=== PATIENT | female | born 1975 | race Caucasian/White ===

== ENCOUNTER 2017-11-22 18:48 | Emergency (ER) | payer OTHER ==
[~2017-11-22] VITALS: Ht 160 cm; Wt 47.6 kg
--- NOTE | ~2017-11-22 | EKG ---
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 11/23/17 0809 1933 193 Favian Bravo MD, FAC /EPI
[2017-11-22] MEDS ORDERED: NEURONTIN 300300 M1 PO (19:00)
[2017-11-22] MEDS ORDERED: LIORESAL 10 MG10 MG PO (19:01)
[2017-11-22 19:33] LABS: ABSOLUTE NEUTROPHILS 9.3 thou/uL (1.4-8.2); EOSINOPHILS 1.6 % (0.0-3.0); HEMATOCRIT 35.4 % (37.0-47.0); HEMOGLOBIN 12.2 gm/dL (12.0-15.0); LYMPHOCYTES 18.5 % (24.0-44.0); MCH 30.3 pg (26.0-34.0); MCHC 34.3 g/dL (28.0-37.0); MCV 88.3 fL (80.0-100.0); PLATELET COUNT 222 thou/uL (150-400); POLYS 70.9 % (36.0-66.0); RBC 4.01 mil/uL (4.20-5.00); RDW 14.2 % (10.5-14.5); WBC 13.1 thou/uL (4.0-11.0)
[2017-11-22 19:43] LABS: ANION GAP 9 mmol/L (7-16); BUN 20 mg/dL (7-18); CALCIUM 8.7 mg/dL (8.5-10.1); CHLORIDE 105 mmol/L (98-107); CO2 25 mmol/L (21-32); CREATININE 0.8 mg/dL (0.6-1.0); GLUCOSE 95 mg/dL (74-106); POTASSIUM 3.9 mmol/L (3.5-5.1); SODIUM 139 mmol/L (136-145)
[2017-11-22 19:53] LABS: SGOT 17 U/L (15-37); SGPT 25 U/L (30-65); TOTAL BILIRUBIN 0.3 mg/dL (<0.1-1.0); TOTAL PROTEIN 7.2 g/dL (6.4-8.2); TROPONIN-I <0.06 ng/mL (<0.06)
[2017-11-22] MEDS ORDERED: NORCO 10-325 T1 EACH PO (21:43)
[2017-11-22] MEDS ORDERED: MIRALAX17 GM PO (21:43)
[2017-11-22 22:11] VITALS: BP 99/56
[2017-11-26] MEDS ORDERED: ANUSOL-HC25 MG RECTAL (13:20)
[2017-11-26] MEDS ORDERED: HYDROCORTISONE30 G9 RECTAL (13:20)
[2017-11-26] MEDS ORDERED: NORCO 5-325 TA1 EACH PO (13:23)
== END 2017-11-22 22:11 | disposition home or self-care (01) ==
LOC: ER 18:48
PROVIDERS: Physician Assistant
DX: S09.90XA Unspecified injury of head, initial encounter (principal); S20.412A Abrasion of left back wall of thorax, initial encounter; M25.512 Pain in left shoulder; R07.9 Chest pain, unspecified; M54.5 Low back pain; F17.210 Nicotine dependence, cigarettes, uncomplicated; M79.7 Fibromyalgia; W11.XXXA Fall on and from ladder, initial encounter; Y92.89 Other specified places as the place of occurrence of the external cause; Y93.89 Activity, other specified; Y99.8 Other external cause status

== ENCOUNTER 2018-01-25 08:59 | Emergency (ER) | payer OTHER ==
[~2018-01-25] VITALS: Ht 157.5 cm; Wt 52.2 kg
[~2018-01-25 08:59] MED LIST: ANUSOL-HC25 MG RECTAL; HYDROCORTISONE30 G9 RECTAL; LIORESAL 10 MG10 MG PO; MIRALAX17 GM PO; NEURONTIN 300300 M1 PO; NORCO 10-325 T1 EACH PO; NORCO 5-325 TA1 EACH PO
[2018-01-25] MEDS ORDERED: LIORESAL 10 MG10 MG PO (09:11)
[2018-01-25] MEDS ORDERED: LIDODERM1 EACH TOP (09:36)
[2018-01-25 09:52] VITALS: BP 102/58
== END 2018-01-25 09:56 | disposition home or self-care (01) ==
LOC: ER 08:59
DX: M25.511 Pain in right shoulder (principal); F17.210 Nicotine dependence, cigarettes, uncomplicated; M79.7 Fibromyalgia

== ENCOUNTER 2018-05-22 16:22 | Emergency (ER) | payer OTHER ==
[~2018-05-22] VITALS: Ht 162.6 cm; Wt 52.2 kg
[2018-05-22 16:22] VITALS: BP 121/63
[~2018-05-22 16:22] MED LIST changes: +LIDODERM1 EACH TOP
[2018-05-22] MEDS ORDERED: PENICILLIN V P500 MG PO (16:37)
[2018-05-22] MEDS ORDERED: NORCO 10-325 T1 EACH PO (16:37)
== END 2018-05-22 16:46 | disposition home or self-care (01) ==
LOC: ER 16:22
DX: K08.89 Other specified disorders of teeth and supporting structures (principal); M79.7 Fibromyalgia; F17.210 Nicotine dependence, cigarettes, uncomplicated

== ENCOUNTER 2018-07-17 11:25 | Emergency (ER) | payer OTHER ==
[~2018-07-17] VITALS: Ht 162.6 cm; Wt 52.2 kg
[~2018-07-17 11:25] MED LIST changes: +PENICILLIN V P500 MG PO
[2018-07-17 14:25] LABS: URINE BILIRUBIN NEGATIVE (Negative); URINE BLOOD NEGATIVE (Negative); URINE CLARITY CLEAR; URINE COLOR YELLOW; URINE GLUCOSE-RANDOM* NEGATIVE (Negative); URINE KETONES NEGATIVE (Negative); URINE LEUKOCYTES-REFLEX NEGATIVE (Negative); URINE NITRITE-REFLEX NEGATIVE (Negative); URINE PROTEIN (DIPSTICK) NEGATIVE (Negative); URINE SPECIFIC GRAVITY <= 1.005 (1.005-1.035); URINE UROBILINOGEN 0.2 E.U./dl (0.2-1.0)
[2018-07-17 14:27] LABS: ABSOLUTE NEUTROPHILS 5.6 thou/uL (1.4-8.2); BASOPHILS 1.2 % (0.0-2.0); EOSINOPHILS 1.2 % (0.0-3.0); HEMATOCRIT 39.9 % (37.0-47.0); HEMOGLOBIN 13.2 gm/dL (12.0-15.0); LYMPHOCYTES 25.7 % (24.0-44.0); MCH 29.3 pg (26.0-34.0); MCHC 33.1 g/dL (28.0-37.0); MCV 88.6 fL (80.0-100.0); MONOCYTES 6.7 % (1.0-8.0); PLATELET COUNT 267 thou/uL (150-400); POLYS 65.2 % (36.0-66.0); WBC 8.6 thou/uL (4.0-11.0)
[2018-07-17 14:40] LABS: CALCIUM 9.3 mg/dL (8.5-10.1); CREATININE 0.6 mg/dL (0.6-1.0)
[2018-07-17 14:45] LABS: TOTAL BILIRUBIN 0.3 mg/dL (<0.1-1.0); TOTAL PROTEIN 7.6 g/dL (6.4-8.2)
[2018-07-17] MEDS ORDERED: NORCO 5-325 TA1 EACH PO (14:50)
[2018-07-17] MEDS ORDERED: SENNA8.6 MG PO (14:50)
[2018-07-17] MEDS ORDERED: PROCTOFOAM15 GM TOP (14:50)
[2018-07-17 15:17] VITALS: BP 118/71
== END 2018-07-17 15:18 | disposition home or self-care (01) ==
LOC: ER 11:25
PROVIDERS: Physician Assistant
DX: K64.4 Residual hemorrhoidal skin tags (principal); M79.7 Fibromyalgia

== ENCOUNTER 2018-07-31 17:56 | Emergency (ER) | payer OTHER ==
[~2018-07-31] VITALS: Ht 157.5 cm; Wt 56.7 kg
[~2018-07-31 17:56] MED LIST changes: +PROCTOFOAM15 GM TOP; +SENNA8.6 MG PO
[2018-07-31] MEDS ORDERED: NAPROSYN500 MG PO (19:05)
[2018-07-31] MEDS ORDERED: AMOXICILLIN 50500 MG PO (19:05)
[2018-07-31] MEDS ORDERED: TRAMADOL 50 MG50 MG PO (19:05)
[2018-07-31 19:17] VITALS: BP 109/74
== END 2018-07-31 19:17 | disposition home or self-care (01) ==
LOC: ER 17:56
DX: K02.9 Dental caries, unspecified (principal); M79.7 Fibromyalgia; F17.210 Nicotine dependence, cigarettes, uncomplicated

== ENCOUNTER 2018-08-24 17:23 | Emergency (ER) | payer OTHER ==
[~2018-08-24] VITALS: Ht 162.6 cm; Wt 56.7 kg
[~2018-08-24 17:23] MED LIST changes: +AMOXICILLIN 50500 MG PO; +NAPROSYN500 MG PO; +TRAMADOL 50 MG50 MG PO
[2018-08-24] MEDS ORDERED: NEURONTIN 300300 M1 PO (17:34)
[2018-08-24] MEDS ORDERED: CYCLOBENZAPRINE5 MG PO (17:54)
[2018-08-24 18:37] VITALS: BP 122/71
== END 2018-08-24 18:04 | disposition home or self-care (01) ==
LOC: ER 17:23
DX: M25.511 Pain in right shoulder (principal); F17.210 Nicotine dependence, cigarettes, uncomplicated; Z76.0 Encounter for issue of repeat prescription; M79.7 Fibromyalgia

== ENCOUNTER 2018-09-12 08:32 | Emergency (ER) | payer OTHER ==
[~2018-09-12] VITALS: Ht 162.6 cm; Wt 54.4 kg
[~2018-09-12 08:32] MED LIST changes: +CYCLOBENZAPRINE5 MG PO
[2018-09-12] MEDS ORDERED: DOXYCYCLINE 10100 MG PO (08:35)
[2018-09-12] MEDS ORDERED: LIORESAL 10 MG10 MG PO (08:41)
[2018-09-12] MEDS ORDERED: CELEXA10 MG PO (08:41)
[2018-09-12 10:17] LABS: HEMOGLOBIN 13.1 gm/dL (12.0-15.0); MCH 29.7 pg (26.0-34.0); MCHC 33.6 g/dL (28.0-37.0); MCV 88.5 fL (80.0-100.0); RBC 4.4 mil/uL (4.20-5.00); RDW 14.7 % (10.5-14.5); WBC 4.3 thou/uL (4.0-11.0)
[2018-09-12 10:27] LABS: CALCIUM 9.1 mg/dL (8.5-10.1); CREATININE 0.7 mg/dL (0.6-1.0); POTASSIUM 4.2 mmol/L (3.5-5.1)
[2018-09-12 10:30] LABS: APTT 28.1 Seconds (24.5-32.8); PROTIME 10.7 Seconds (9.3-11.4)
[2018-09-12 10:33] LABS: ALBUMIN 3.7 g/dL (3.4-5.0); TOTAL BILIRUBIN 0.2 mg/dL (<0.1-1.0); TOTAL PROTEIN 7.3 g/dL (6.4-8.2)
[2018-09-12 10:48] VITALS: BP 126/73
[2018-09-13 05:08] LABS: LYME ANTIBODY SCREEN* <0.91 ISR (0.00-0.90)
== END 2018-09-12 10:15 | disposition home or self-care (01) ==
LOC: ER 08:32
PROVIDERS: Emergency Medicine
DX: S30.860A Insect bite (nonvenomous) of lower back and pelvis, initial encounter (principal); M79.7 Fibromyalgia; F17.210 Nicotine dependence, cigarettes, uncomplicated; W57.XXXA Bitten or stung by nonvenomous insect and other nonvenomous arthropods, initial encounter; Y93.89 Activity, other specified; Y92.89 Other specified places as the place of occurrence of the external cause; Y99.8 Other external cause status

== ENCOUNTER 2018-10-25 20:25 | Emergency (ER) | payer OTHER ==
[~2018-10-25] VITALS: Ht 157.5 cm; Wt 56.7 kg
[~2018-10-25 20:25] MED LIST changes: +CELEXA10 MG PO; +DOXYCYCLINE 10100 MG PO
[2018-10-25 20:31] VITALS: BP 121/100
[2018-10-25] MEDS ORDERED: NAPROSYN500 MG PO (21:00)
[2018-10-25] MEDS ORDERED: MEDROLDOSEPACK PO (21:00)
[2018-10-25] MEDS ORDERED: ULTRAM 50MG TAB50 MG PO (21:00)
== END 2018-10-25 21:21 | disposition home or self-care (01) ==
LOC: ER 20:25
DX: S46.911A Strain of unspecified muscle, fascia and tendon at shoulder and upper arm level, right arm, initial encounter (principal); M79.7 Fibromyalgia; F17.210 Nicotine dependence, cigarettes, uncomplicated; X58.XXXA Exposure to other specified factors, initial encounter; Y93.89 Activity, other specified; Y92.89 Other specified places as the place of occurrence of the external cause; Y99.8 Other external cause status

== ENCOUNTER 2018-12-19 11:46 | Emergency (ER) | payer OTHER ==
[~2018-12-19] VITALS: Ht 162.6 cm; Wt 54.4 kg
[~2018-12-19 11:46] MED LIST changes: +MEDROLDOSEPACK PO; +ULTRAM 50MG TAB50 MG PO
[2018-12-19 11:47] VITALS: BP 119/70
[2018-12-19 12:03] LABS: URINE BILIRUBIN NEGATIVE (Negative); URINE BLOOD NEGATIVE (Negative); URINE CLARITY CLEAR; URINE COLOR YELLOW; URINE GLUCOSE-RANDOM* NEGATIVE (Negative); URINE KETONES NEGATIVE (Negative); URINE NITRITE-REFLEX NEGATIVE (Negative); URINE PROTEIN (DIPSTICK) NEGATIVE (Negative); URINE UROBILINOGEN 0.2 E.U./dl (0.2-1.0)
[2018-12-19 12:06] LABS: URINE LEUKOCYTES-REFLEX 1+ (Negative)
[2018-12-19 12:13] LABS: SQUAMOUS >10 Many /LPF (0-3)
[2018-12-19 12:14] LABS: BACTERIA-REFLEX 1-9 Few /HPF (None Seen); CASTS None Seen /LPF (None Seen); CRYSTALS None Seen /LPF (None Seen); URINE RBC 0-2 Rare /HPF (0-2); URINE WBC-REFLEX 6-15 Few /HPF (0-5)
[2018-12-19] MEDS ORDERED: PROCTOFOAM-HC F10 G1 RECTAL (12:38)
[2018-12-19] MEDS ORDERED: LIDOCAINE 2%2 %/5 GM RECTAL (12:38)
[2018-12-19] MEDS ORDERED: SENNA8.6 MG PO (12:38)
[2018-12-19] MEDS ORDERED: NORCO 5-325 TA1 EAC1 PO (12:38)
== END 2018-12-19 12:51 | disposition home or self-care (01) ==
LOC: ER 11:46
PROVIDERS: Physician Assistant
DX: K64.4 Residual hemorrhoidal skin tags (principal); M79.7 Fibromyalgia; F17.210 Nicotine dependence, cigarettes, uncomplicated

== ENCOUNTER 2019-01-31 09:50 | Emergency (ER) | payer OTHER ==
[~2019-01-31] VITALS: Ht 157.5 cm; Wt 54.4 kg
[~2019-01-31 09:50] MED LIST changes: +LIDOCAINE 2%2 %/5 GM RECTAL; +NORCO 5-325 TA1 EAC1 PO; +PROCTOFOAM-HC F10 G1 RECTAL
[2019-01-31] MEDS ORDERED: LEXAPRO20 MG PO (10:00)
[2019-01-31 10:23] LABS: ABSOLUTE NEUTROPHILS 7.3 thou/uL (1.4-8.2); EOSINOPHILS 1.6 % (0.0-3.0); HEMATOCRIT 40.7 % (37.0-47.0); HEMOGLOBIN 13.4 gm/dL (12.0-15.0); LYMPHOCYTES 19.3 % (24.0-44.0); MCH 29.8 pg (26.0-34.0); MCV 90.4 fL (80.0-100.0); MONOCYTES 7.6 % (1.0-8.0); PLATELET COUNT 213 thou/uL (150-400); POLYS 70.5 % (36.0-66.0); WBC 10.3 thou/uL (4.0-11.0)
[2019-01-31 10:26] LABS: ANION GAP 11 mmol/L (7-16); BUN 12 mg/dL (7-18); CALCIUM 9.2 mg/dL (8.5-10.1); CHLORIDE 105 mmol/L (98-107); CO2 25 mmol/L (21-32); CREATININE 0.7 mg/dL (0.6-1.0); GLUCOSE 96 mg/dL (74-106); POTASSIUM 3.7 mmol/L (3.5-5.1); SODIUM 141 mmol/L (136-145)
[2019-01-31 10:35] LABS: TROPONIN-I <0.06 ng/mL (<0.06)
[2019-01-31] MEDS ORDERED: LIDOCAINE PAIN1 EACH TOP (11:40)
[2019-01-31] MEDS ORDERED: SENNA PLUS TAB1 EACH PO (11:40)
[2019-01-31] MEDS ORDERED: NORCO 5-325 TA1 EAC1 PO (11:40)
[2019-01-31 13:00] VITALS: BP 101/54
--- NOTE | 2019-02-01 09:11 | EKG ---
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
== END 2019-01-31 13:01 | disposition home or self-care (01) ==
LOC: ER 09:50
PROVIDERS: Emergency Medicine
DX: R07.89 Other chest pain (principal); M79.7 Fibromyalgia; F17.210 Nicotine dependence, cigarettes, uncomplicated

== ENCOUNTER 2019-03-30 12:47 | Emergency (ER) | payer OTHER ==
[~2019-03-30] VITALS: Ht 157.5 cm; Wt 61.2 kg
[~2019-03-30 12:47] MED LIST changes: +LEXAPRO20 MG PO; +LIDOCAINE PAIN1 EACH TOP; +SENNA PLUS TAB1 EACH PO
[2019-03-30 13:49] LABS: ABSOLUTE NEUTROPHILS 7.7 thou/uL (1.4-8.2); ANION GAP 11 mmol/L (7-16); BASOPHILS 0.9 % (0.0-2.0); BUN 18 mg/dL (7-18); CALCIUM 8.8 mg/dL (8.5-10.1); CHLORIDE 104 mmol/L (98-107); CO2 24 mmol/L (21-32); CREATININE 0.6 mg/dL (0.6-1.0); EOSINOPHILS 0.9 % (0.0-3.0); GLUCOSE 101 mg/dL (74-106); HEMATOCRIT 36.2 % (37.0-47.0); LYMPHOCYTES 17.3 % (24.0-44.0); MCH 29.4 pg (26.0-34.0); MONOCYTES 7.9 % (1.0-8.0); PLATELET COUNT 225 thou/uL (150-400); POTASSIUM 3.7 mmol/L (3.5-5.1); RBC 4.07 mil/uL (4.20-5.00); RDW 13.8 % (10.5-14.5); SODIUM 139 mmol/L (136-145); WBC 10.6 thou/uL (4.0-11.0)
[2019-03-30 13:59] LABS: ALBUMIN 3.8 g/dL (3.4-5.0); LIPASE 71 U/L (73-393); SGOT 12 U/L (15-37); SGPT 16 U/L (30-65); TOTAL BILIRUBIN 0.3 mg/dL (<0.1-1.0); TOTAL PROTEIN 7.4 g/dL (6.4-8.2); TROPONIN-I <0.06 ng/mL (<0.06)
[2019-03-30 14:19] LABS: URINE BILIRUBIN NEGATIVE (Negative); URINE BLOOD NEGATIVE (Negative); URINE CLARITY CLEAR; URINE COLOR YELLOW; URINE GLUCOSE-RANDOM* NEGATIVE (Negative); URINE KETONES NEGATIVE (Negative); URINE LEUKOCYTES-REFLEX NEGATIVE (Negative); URINE NITRITE-REFLEX NEGATIVE (Negative); URINE PROTEIN (DIPSTICK) NEGATIVE (Negative); URINE SPECIFIC GRAVITY >= 1.030 (1.005-1.035); URINE UROBILINOGEN 0.2 E.U./dl (0.2-1.0)
[2019-03-30] MEDS ORDERED: TYLENOL WITH CO1 TA1 PO (15:03)
[2019-03-30] MEDS ORDERED: PROTONIX40 MG PO (15:03)
[2019-03-30 15:39] VITALS: BP 98/64
--- NOTE | 2019-03-31 09:40 | EKG ---
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[facility] : 1975 Requested By: Corona Kang Order Number: [id number] MD: Favian Bravo Measurements Intervals [place] Rate: 58 P: 37 ND: 130 QRS: 83 QRSD: 86 T: 60 QT: 432 QTc: 425 Interpretive Statements Sinus rhythm No significant abnormality Compared to ECG 01/31/2019 09:47:06 Myocardial infarct finding no longer present Electronically Signed On 03-31-2019 9:40:28 DIRECTOR INVESTMENT BANKING by Favian Bravo [email or web address] <ELECTRONICALLY SIGNED> By: Favian Bravo MD, [facility] 03/31/19 0940 1335 1335 Favian Bravo MD, FACC /EPI
== END 2019-03-30 15:40 | disposition home or self-care (01) ==
LOC: ER 12:47
PROVIDERS: Emergency Medicine
DX: K64.4 Residual hemorrhoidal skin tags (principal); R19.7 Diarrhea, unspecified; M79.7 Fibromyalgia; F17.210 Nicotine dependence, cigarettes, uncomplicated

== ENCOUNTER 2019-04-24 14:09 | Emergency (ER) | payer OTHER ==
[~2019-04-24] VITALS: Ht 162.6 cm; Wt 54.4 kg
[~2019-04-24 14:09] MED LIST changes: +PROTONIX40 MG PO; +TYLENOL WITH CO1 TA1 PO
[2019-04-24 14:31] LABS: URINE BILIRUBIN NEGATIVE (Negative); URINE BLOOD NEGATIVE (Negative); URINE CLARITY SL CLOUDY; URINE COLOR YELLOW; URINE GLUCOSE-RANDOM* NEGATIVE (Negative); URINE KETONES NEGATIVE (Negative); URINE NITRITE-REFLEX NEGATIVE (Negative); URINE PROTEIN (DIPSTICK) NEGATIVE (Negative); URINE SPECIFIC GRAVITY 1.015 (1.005-1.035)
[2019-04-24 14:33] LABS: URINE LEUKOCYTES-REFLEX 1+ (Negative)
[2019-04-24 14:54] LABS: CASTS None Seen /LPF (None Seen); SQUAMOUS >10 Many /LPF (0-3); URINE WBC-REFLEX 6-15 Few /HPF (0-5)
[2019-04-24 14:55] LABS: BACTERIA-REFLEX 1-9 Few /HPF (None Seen); CRYSTALS None Seen /LPF (None Seen); URINE RBC 0-2 Rare /HPF (0-2)
[2019-04-24 15:14] LABS: ABSOLUTE NEUTROPHILS 4.3 thou/uL (1.4-8.2); BASOPHILS 1.4 % (0.0-2.0); EOSINOPHILS 1.6 % (0.0-3.0); HEMOGLOBIN 11.8 gm/dL (12.0-15.0); LYMPHOCYTES 29.3 % (24.0-44.0); MCH 29.2 pg (26.0-34.0); MCHC 32.8 g/dL (28.0-37.0); MCV 88.9 fL (80.0-100.0); PLATELET COUNT 230 thou/uL (150-400); POLYS 58.7 % (36.0-66.0); RBC 4.05 mil/uL (4.20-5.00); RDW 13.9 % (10.5-14.5); WBC 7.4 thou/uL (4.0-11.0)
--- NOTE | 2019-04-24 15:30 | EKG ---
[address] 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
[2019-04-24 15:31] LABS: ANION GAP 8 mmol/L (7-16); BUN 18 mg/dL (7-18); CALCIUM 8.7 mg/dL (8.5-10.1); CHLORIDE 105 mmol/L (98-107); CO2 27 mmol/L (21-32); CREATININE 0.8 mg/dL (0.6-1.0); GLUCOSE 90 mg/dL (74-106); POTASSIUM 3.9 mmol/L (3.5-5.1); SODIUM 140 mmol/L (136-145)
[2019-04-24 15:51] LABS: ALBUMIN 3.7 g/dL (3.4-5.0); LIPASE 85 U/L (73-393); SGOT 15 U/L (15-37); SGPT 19 U/L (30-65); TOTAL BILIRUBIN 0.2 mg/dL (<0.1-1.0); TOTAL PROTEIN 7.2 g/dL (6.4-8.2); TROPONIN-I <0.06 ng/mL (<0.06)
[2019-04-24] MEDS ORDERED: TRAMADOL 50 MG50 MG PO (17:11)
[2019-04-24] MEDS ORDERED: ZOFRAN ODT4 MG PO (17:11)
[2019-04-24] MEDS ORDERED: CARAFATE 1 GM TA1 G1 PO (17:11)
[2019-04-24 17:21] VITALS: BP 112/76
== END 2019-04-24 17:32 | disposition home or self-care (01) ==
LOC: ER 14:09
PROVIDERS: Nurse Practitioner Family
DX: N39.0 Urinary tract infection, site not specified (principal); R10.13 Epigastric pain; M79.7 Fibromyalgia; F17.210 Nicotine dependence, cigarettes, uncomplicated

== ENCOUNTER → 2019-04-25 | Emergency (ER) | payer OTHER ==
[~2019-04-25] VITALS: Ht 162.6 cm; Wt 54.4 kg
[~2019-04-25] MED LIST changes: +BACLOFEN 10MG T10 MG PO; +CARAFATE 1 GM TA1 G1 PO; +ZOFRAN ODT4 MG PO
[2019-04-25 18:49] VITALS: BP 114/58
== END ==
LOC: ER 18:48
DX: Z53.21 Procedure and treatment not carried out due to patient leaving prior to being seen by health care provider (principal)

== ENCOUNTER 2019-04-27 14:31 | Inpatient (IN) | payer OTHER ==
[~2019-04-27] VITALS: Wt 55.3 kg
[~2019-04-27 14:31] MED LIST changes: -BACLOFEN 10MG T10 MG PO
[2019-04-27 14:32] VITALS: BP 123/64
[2019-04-27 15:38] LABS: ABSOLUTE NEUTROPHILS 5.1 thou/uL (1.4-8.2); HEMATOCRIT 35.3 % (37.0-47.0); HEMOGLOBIN 11.4 gm/dL (12.0-15.0); LYMPHOCYTES 28.7 % (24.0-44.0); MCH 28.9 pg (26.0-34.0); MCHC 32.2 g/dL (28.0-37.0); MCV 89.8 fL (80.0-100.0); POLYS 60.3 % (36.0-66.0); RBC 3.93 mil/uL (4.20-5.00); RDW 13.7 % (10.5-14.5); WBC 8.5 thou/uL (4.0-11.0)
[2019-04-27 15:43] LABS: CALCIUM 8.9 mg/dL (8.5-10.1); CREATININE 0.6 mg/dL (0.6-1.0); POTASSIUM 3.8 mmol/L (3.5-5.1)
[2019-04-27 15:43] LABS: URINE BILIRUBIN NEGATIVE (Negative); URINE BLOOD NEGATIVE (Negative); URINE GLUCOSE-RANDOM* NEGATIVE (Negative); URINE KETONES NEGATIVE (Negative); URINE NITRITE-REFLEX NEGATIVE (Negative); URINE PROTEIN (DIPSTICK) NEGATIVE (Negative); URINE SPECIFIC GRAVITY <= 1.005 (1.005-1.035); URINE UROBILINOGEN 0.2 E.U./dl (0.2-1.0)
[2019-04-27 15:45] LABS: URINE CLARITY SL HAZY; URINE COLOR STRAW; URINE LEUKOCYTES-REFLEX 2+ (Negative)
[2019-04-27 15:49] LABS: ALBUMIN 3.7 g/dL (3.4-5.0); TOTAL BILIRUBIN 0.5 mg/dL (<0.1-1.0); TOTAL PROTEIN 7.2 g/dL (6.4-8.2)
[2019-04-27 16:00] LABS: SQUAMOUS 4-10 Moderate /LPF (0-3); URINE WBC-REFLEX 6-15 Few /HPF (0-5)
[2019-04-27 16:01] LABS: CASTS None Seen /LPF (None Seen); CRYSTALS None Seen /LPF (None Seen); URINE RBC None Seen /HPF (0-2)
[2019-04-27 16:25] LABS: PLATELET COUNT 216 thou/uL (150-400)
[2019-04-27 18:41] VITALS: BP 139/78
[2019-04-27 20:15] VITALS: BP 112/69
[2019-04-27 20:22] VITALS: BP 102/77
[2019-04-27] MEDS ORDERED: BACLOFEN 10MG T10 MG PO (23:32)
[2019-04-28 05:35] LABS: HEMATOCRIT 36.2 % (37.0-47.0); HEMOGLOBIN 11.7 gm/dL (12.0-15.0); MCH 29.3 pg (26.0-34.0); MCHC 32.4 g/dL (28.0-37.0); MCV 90.6 fL (80.0-100.0); RDW 14.1 % (10.5-14.5); WBC 9.4 thou/uL (4.0-11.0)
[2019-04-28 05:57] LABS: CALCIUM 8.6 mg/dL (8.5-10.1); CREATININE 0.6 mg/dL (0.6-1.0); POTASSIUM 3.8 mmol/L (3.5-5.1)
--- NOTE | 2019-04-28 06:46 | NUR ---
ADMIT PT ADMITTED TO ROOM 457 FROM ED WITH ABDOMINAL PAIN, ADMISSION QUESTIONAIRE, ASSESSMENT, MED REC COMPLETED. [facility]SULT TO [facility] CALLED . IVF'S INITIATED MORPHINE AND HYDROCODONE GIVEN FOR PAIN WITH EFFECT PT SLEEPS AFTER. CONTINUE TO MONITOR.
[2019-04-28 07:53] VITALS: BP 96/55
[2019-04-28 16:57] VITALS: BP 90/54
--- NOTE | 2019-04-28 19:42 | NUR ---
Assumed pt care at 7am.Pt in and out of bed with sba.Assessment completed.vss. Pt has urinary retention but able to voids when told she will be catherized. Dr Louise here,order noted.pt significant other here,updates given.Medicated pt with pain shot as needed for pain.Will continue to monitor.
[2019-04-28 19:46] VITALS: BP 89/58
[2019-04-28 20:20] VITALS: BP 94/55
--- NOTE | 2019-04-29 03:29 | NUR ---
PT CARE ASSUMED WITH PT IN BED,PT IS A/O X4.PT IS UP AD ISACC.PT C/O OF SHOULDER PAIN ,NATALIE ANDREWS PAGED AND TORADOL 30MG STAT GIVEN WITH NO RELIEF.EKG DONE BY NURSING TREE CARE FOREMAN AND RESULT OK.LIDOCAINE PATCH OREDRED FOR SHOULDER PAIN AND LABS ORDERED.MEDICATION REVIEWED BY NATALIE ANDREWS.PT IS ALSO ON MORPHINE FOR PAIN MGT.WILL CONTINUE TO MONITOR PER POC TILL EOS
[2019-04-29 05:33] LABS: ANION GAP 8 mmol/L (7-16); BUN 13 mg/dL (7-18); CALCIUM 8.5 mg/dL (8.5-10.1); CHLORIDE 106 mmol/L (98-107); CO2 25 mmol/L (21-32); CREATININE 0.7 mg/dL (0.6-1.0); GLUCOSE 89 mg/dL (74-106); MAGNESIUM 1.7 mg/dL (1.8-2.4); POTASSIUM 3.8 mmol/L (3.5-5.1); SODIUM 139 mmol/L (136-145); TROPONIN-I <0.06 ng/mL (<0.06)
[2019-04-29 08:00] VITALS: BP 127/65
--- NOTE | 2019-04-29 11:26 | EKG ---
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
--- NOTE | 2019-04-29 13:15 | NUR ---
Assumed pt care at 7am.Pt in bed sleeping but arousable.Assessment completed. vss.Pt c/o rt shoulder and abdominal pain.Pain shot given with partial relief. Dr Abbott here,order noted.Pt will be going for edg in am.Consent will be sign later this afternoon.Pt went for abdominal xray later this morning and returned later to room. Will continue to monitor.
[2019-04-29 15:00] VITALS: BP 115/57
[2019-04-29 19:50] VITALS: BP 119/65
--- NOTE | 2019-04-30 04:03 | NUR ---
Progress pt a/o x4, up ad polo. C/o pain to right hip that is somewhat relieved with hydrocodone. Pt confused yelling out help me at times but unable to verbalize what she needs. pulled iv out and new one started in right hand wrapped with kerlix. Griffin in place and draining clear estrella colored urine. pulling o2 off sats dropped dwon to 75%, reapplied o2 and sats up into mid 90's. incontinent of stool. possible discharge to snf when accepted.
--- NOTE | 2019-04-30 05:12 | NUR ---
PROGRESS PT A/O X 4, UP AD ISACC VOIDING QS IN BATHROOM. IVF'S CONTINUE. CONTINUES TO REPORT ABDOMINAL PAIN TAKING 4 MG MORPHINE IVP. TO HAVE EGD TODAY NPO SINCE MIDNIGHT CONTINUE POC.
[2019-04-30 07:56] VITALS: BP 109/56
[2019-04-30 12:30] VITALS: BP 109/65
--- NOTE | 2019-04-30 12:51 | NUR ---
Assumed pt care at 7am.Pt in bed very worried about when she will be going for egd today.Gi lab called for updates. At around 11am pt left for egd and returned at 1300 in stable condition. Will continue to monitor.
[2019-04-30 13:44] VITALS: BP 101/56
--- NOTE | 2019-04-30 14:55 | NUR ---
PT ADMITTED RLEATED TO ABDOMINAL PAIN. CM REVIEWED CHART AND SPOKE WITH CARE TEAM. CM MET WITH PT AT BEDSIDE THIS DAY. PT INDICATED SHE LIVES IN AN APARTMENT ALONE WITH 10 STEPS TO ENTER AND NO STEPS INSIDE. 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 PT INDICATED NO DME OR HH HX. PT INDICATED HE PCP ID DR. JOHANNY BERKOWITZ. PT INDIATED SHE PLANS TO RETURN HOME ONCE MEDICALLY STABLE. CM TO FOLLOW INDICATED WITH DC PLANNING.
[2019-04-30 19:03] VITALS: BP 98/57
[2019-05-01 07:10] VITALS: BP 90/63
--- NOTE | 2019-05-01 08:24 | NUR ---
PROGRESS PT A/O X4 UP AD ISACC LUNGS CLEAR TOLERATING CLEAR LIQUIDS TO ADVANCE TO FULL LIQUIDS AND TO REG TOLERATED. NPO AFTER MIDNIGHT FOR PIPPIDA SCAN. NO NARCOTICS AFTER 2200 LAST KENDRICK GIVEN AT 2150 WITH EFFECT PT SLEPT ALL NOC. UP TO VOID INDEPENDENTLY, IVF'S INFUSING ORDERED. PT EDUCATION PROVIDED REGARDING PIPIDA SCAN LEFT WITH PT ADVISED TO CALL IF SHE NEEDED FURTHER EXPLANATION REGARDING TEST.
[2019-05-01] MEDS ORDERED: TRAMADOL 50 MG50 MG PO (10:30)
[2019-05-01] MEDS ORDERED: CEFUROXIME250 MG PO (10:48)
[2019-05-01 12:02] VITALS: BP 90/63
--- NOTE | 2019-05-01 12:23 | NUR ---
PT RECEIVED PIPIDA SCAN THIS SHIFT. MET WITH GI & HOSPITALIST. PT DISCHARGED HOME WITH NO NEEDS. DISCHARGE EDUCATION AND MEDICATION EDUCATION PROVIDED TO PATIENT. PATIENT AWARE THAT NEW PRESCRIPTIONS SENT TO PHARMACY ELECTRONICALLY. NOTIFIED PATIENT OF FOLLOW UP IN 2-4 WEEKS WITH GI PHYSICIAN. PT VERBALIZES ACCURATE UNDERSTANDING OF DISCHARGE EDUCATION. PT ESCORTED VIA WHEELCHAIR BY UNIT STAFF.
--- NOTE | 2019-05-01 16:06 | PATH ---
[facility] [place] [address] PATHOLOGY RPT PROCEDURE Name: LUISA DSOS Room #: 457-P DIS IN M.R.#: [id number] Admission: 04/27/19 Date of : 71 Discharge: 05/01/19 Report #: [id number] Path Case #: [id number] [facility] Accession Number: [id number] . 01 Material submitted: . PART A: duodenum - BX OF DUODENUM PART B: stomach - BX OF ANTRUM . 01 Clinical history: . Pre-OP DX: Abdominal pain Post-OP DX: Gastritis, mild esophagitis . 02 Diagnosis: A. Small bowel mucosa, duodenum, endoscopic biopsy: - No diagnostic abnormalities present. . B. 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 - Negative for intestinal metaplasia or atrophy. - Negative for Helicobacter pylori (properly controlled immunohistochemical stain performed). (IUV:pit 05/01/2019) QTP 05/01/2019 1226 Local . 02 Comment: B. The current "antrum" biopsy tissue shows some mild active gastritis along with scattered foci showing predominantly eosinophilic infiltrate. The histologic pattern is concerning for allergic, collagen vascular diseases, fungal or parasitic infection, as well as idiopathic eosinophilic gastritis. Please correlate with clinical and endoscopic findings. (IUV:pit 05/01/2019) . 02 Electronically signed: . Natalia Hanley MD, Pathologist NPI- [id number] . 01 Gross description: . A. Received in formalin labeled "Luisa Doss, BX of duodenum to rule out celiac," are 2 segments of braun soft tissue measuring 0.7 x 0.2 x 0.2 cm in aggregate dimensions and ranging from 0.3 to 0.4 cm in maximum dimension. The specimen is submitted entirely in cassette A1. . B. Received in formalin labeled "Luisa Doss, BX of antrum to rule out H. pylori," are 2 segments of braun soft tissue measuring 0.8 x 0.2 x 0.2 cm in aggregate dimensions and ranging from 0.3 to 0.5 cm in maximum dimension. [address] [address] PATHOLOGY RPT PROCEDURE Name: LUISA DOSS Room #: 457-P DIS IN M.R.#: [id number] Admission: 04/27/19 Date of : 71 Discharge: 05/01/19 Report #: [id number] Path Case #: [id number] The specimen is submitted entirely in cassette B1. (TSD; 04/30/2019) TOB/TOB 04/30/2019 1700 Local . 02 Pathologist provided ICD-10: K29.50 . 02 CPT . 221575, 768456, [id number] Specimen Comment: A courtesy copy of this report has been sent to [phone] Specimen Comment: Report sent to / DR PALMA Performed at: [address], [place] [id number] MD Alverto Ortiz MD Phone: [phone] Performed at: [address] [id number] MD Natalia Hanely MD Phone: [phone]
== END 2019-05-01 12:31 | disposition home or self-care (01) | DRG 392 ==
LOC: ER 14:31 → EROBS 18:11 → 4W 20:09
PROVIDERS: Nurse Practitioner Acute Care; Physician Assistant; ADMIT Hospitalist
PROC: 0DB98ZX Excision of Duodenum, Via Natural or Artificial Opening Endoscopic, Diagnostic (ICD-10-PCS; principal; 2019-04-30)
PROC: 0DB68ZX Excision of Stomach, Via Natural or Artificial Opening Endoscopic, Diagnostic (ICD-10-PCS; principal; 2019-04-30)
DX: K29.70 Gastritis, unspecified, without bleeding (principal); N39.0 Urinary tract infection, site not specified; F17.210 Nicotine dependence, cigarettes, uncomplicated; G89.29 Other chronic pain; R33.9 Retention of urine, unspecified; F19.10 Other psychoactive substance abuse, uncomplicated; K20.9 Esophagitis, unspecified; F32.9 Major depressive disorder, single episode, unspecified; Z79.899 Other long term (current) drug therapy
CPT/HCPCS: 10040; 62110; 62900; 70005

== ENCOUNTER 2019-06-07 07:11 | Emergency (ER) | payer OTHER ==
[~2019-06-07] VITALS: Ht 162.6 cm; Wt 56.7 kg
[~2019-06-07 07:11] MED LIST changes: +BACLOFEN 10MG T10 MG PO; +CEFUROXIME250 MG PO
[2019-06-07] MEDS ORDERED: HYDROCORTISONE30 GM TOP (09:51)
[2019-06-07 10:12] VITALS: BP 120/70
== END 2019-06-07 10:12 | disposition home or self-care (01) ==
LOC: ER 07:11
DX: R21 Rash and other nonspecific skin eruption (principal); M79.7 Fibromyalgia; F17.210 Nicotine dependence, cigarettes, uncomplicated; Z90.49 Acquired absence of other specified parts of digestive tract; Z98.51 Tubal ligation status; Z88.6 Allergy status to analgesic agent

== ENCOUNTER 2019-10-05 19:37 | Emergency (ER) | payer OTHER ==
[~2019-10-05] VITALS: Ht 162.6 cm; Wt 58.5 kg
[~2019-10-05 19:37] MED LIST changes: +HYDROCORTISONE30 GM TOP
[2019-10-05 20:18] LABS: URINE BILIRUBIN NEGATIVE (Negative); URINE BLOOD 1+ (Negative); URINE CLARITY CLEAR; URINE COLOR YELLOW; URINE GLUCOSE-RANDOM* NEGATIVE (Negative); URINE KETONES NEGATIVE (Negative); URINE NITRITE-REFLEX NEGATIVE (Negative); URINE PROTEIN (DIPSTICK) NEGATIVE (Negative); URINE UROBILINOGEN 0.2 E.U./dl (0.2-1.0)
[2019-10-05 20:19] LABS: URINE LEUKOCYTES-REFLEX 1+ (Negative)
[2019-10-05 20:27] LABS: CASTS None Seen /LPF (None Seen); CRYSTALS None Seen /LPF (None Seen); SQUAMOUS >10 Many /LPF (0-3)
[2019-10-05 20:29] LABS: BACTERIA-REFLEX 1-9 Few /HPF (None Seen); URINE WBC-REFLEX 6-15 Few /HPF (0-5)
[2019-10-05 20:30] LABS: URINE RBC 3-10 Few /HPF (0-2)
[2019-10-05] MEDS ORDERED: LIDODERM1 EACH TOP (22:06)
[2019-10-05 22:14] VITALS: BP 114/61
== END 2019-10-05 22:25 | disposition home or self-care (01) ==
LOC: ER 19:37
PROVIDERS: Physician Assistant
DX: S22.31XA Fracture of one rib, right side, initial encounter for closed fracture (principal); F17.210 Nicotine dependence, cigarettes, uncomplicated; Z98.51 Tubal ligation status; Z90.89 Acquired absence of other organs; M79.7 Fibromyalgia; Z79.899 Other long term (current) drug therapy; Z88.6 Allergy status to analgesic agent; Z88.5 Allergy status to narcotic agent; Z88.8 Allergy status to other drugs, medicaments and biological substances; W18.30XA Fall on same level, unspecified, initial encounter; Y93.E1 Activity, personal bathing and showering; Y92.002 Bathroom of unspecified non-institutional (private) residence as the place of occurrence of the external cause; Y99.8 Other external cause status

== ENCOUNTER 2019-10-24 09:44 | Emergency (ER) | payer OTHER ==
[~2019-10-24] VITALS: Ht 162.6 cm; Wt 59.0 kg
[2019-10-24 09:50] VITALS: BP 105/66
[2019-10-24] MEDS ORDERED: NORCO 10-325 T1 EACH PO (10:32)
== END 2019-10-24 10:51 | disposition home or self-care (01) ==
LOC: ER 09:44
DX: S22.41XD Multiple fractures of ribs, right side, subsequent encounter for fracture with routine healing (principal); M79.7 Fibromyalgia; Q60.0 Renal agenesis, unilateral; Z90.89 Acquired absence of other organs; Z98.51 Tubal ligation status; F17.210 Nicotine dependence, cigarettes, uncomplicated; Z79.899 Other long term (current) drug therapy; Z88.8 Allergy status to other drugs, medicaments and biological substances; W18.2XXD Fall in (into) shower or empty bathtub, subsequent encounter

== ENCOUNTER 2019-11-20 07:08 | Emergency (ER) | payer OTHER ==
[~2019-11-20] VITALS: Ht 162.6 cm; Wt 56.7 kg
[2019-11-20] MEDS ORDERED: BACTRIM DS TAB1 EAC1 PO (07:47)
[2019-11-20] MEDS ORDERED: TRAZODONE HCL50 MG PO (07:47)
[2019-11-20 07:51] LABS: URINE BILIRUBIN NEGATIVE (Negative); URINE BLOOD NEGATIVE (Negative); URINE CLARITY CLEAR; URINE COLOR YELLOW; URINE GLUCOSE-RANDOM* NEGATIVE (Negative); URINE KETONES NEGATIVE (Negative); URINE LEUKOCYTES-REFLEX NEGATIVE (Negative); URINE NITRITE-REFLEX NEGATIVE (Negative); URINE PROTEIN (DIPSTICK) NEGATIVE (Negative); URINE SPECIFIC GRAVITY >= 1.030 (1.005-1.035); URINE UROBILINOGEN 0.2 E.U./dl (0.2-1.0)
[2019-11-20 07:55] LABS: ABSOLUTE NEUTROPHILS 4.3 thou/uL (1.4-8.2); BASOPHILS 0.9 % (0.0-2.0); EOSINOPHILS 2.9 % (0.0-3.0); HEMOGLOBIN 14.5 gm/dL (12.0-15.0); LYMPHOCYTES 23.4 % (24.0-44.0); MCH 31.2 pg (26.0-34.0); MCHC 33.7 g/dL (28.0-37.0); MCV 92.6 fL (80.0-100.0); MONOCYTES 9.4 % (1.0-8.0); PLATELET COUNT 205 thou/uL (150-400); POLYS 63.4 % (36.0-66.0); RBC 4.64 mil/uL (4.20-5.00); RDW 14.1 % (10.5-14.5); WBC 6.8 thou/uL (4.0-11.0)
[2019-11-20 08:21] LABS: CREATININE 0.8 mg/dL (0.6-1.0); POTASSIUM 3.6 mmol/L (3.5-5.1)
[2019-11-20 08:24] LABS: ALBUMIN 4.1 g/dL (3.4-5.0); TOTAL BILIRUBIN 0.2 mg/dL (0.2-1.0)
[2019-11-20] MEDS ORDERED: ONDANSETRON ODT8 MG PO (09:14)
[2019-11-20] MEDS ORDERED: TYLENOL WITH CO1 TA1 PO (09:14)
[2019-11-20 09:35] VITALS: BP 135/91
== END 2019-11-20 09:36 | disposition home or self-care (01) ==
LOC: ER 07:08
PROVIDERS: Emergency Medicine
DX: N13.30 Unspecified hydronephrosis (principal); R00.0 Tachycardia, unspecified; R07.81 Pleurodynia; M79.7 Fibromyalgia; F17.210 Nicotine dependence, cigarettes, uncomplicated; Z87.442 Personal history of urinary calculi; Z90.5 Acquired absence of kidney; Z85.44 Personal history of malignant neoplasm of other female genital organs; Z90.89 Acquired absence of other organs; Z98.51 Tubal ligation status; Z79.899 Other long term (current) drug therapy; Z79.2 Long term (current) use of antibiotics; Z88.8 Allergy status to other drugs, medicaments and biological substances

== ENCOUNTER 2019-12-26 15:12 | Emergency (ER) | payer OTHER ==
[~2019-12-26] VITALS: Ht 162.6 cm; Wt 56.7 kg
[~2019-12-26 15:12] MED LIST changes: +BACTRIM DS TAB1 EAC1 PO; +ONDANSETRON ODT8 MG PO; +TRAZODONE HCL50 MG PO
[2019-12-26 15:29] LABS: URINE BILIRUBIN NEGATIVE (Negative); URINE BLOOD 3+ (Negative); URINE CLARITY CLEAR; URINE COLOR YELLOW; URINE GLUCOSE-RANDOM* NEGATIVE (Negative); URINE KETONES NEGATIVE (Negative); URINE LEUKOCYTES-REFLEX NEGATIVE (Negative); URINE NITRITE-REFLEX NEGATIVE (Negative); URINE PROTEIN (DIPSTICK) NEGATIVE (Negative); URINE SPECIFIC GRAVITY <= 1.005 (1.005-1.035); URINE UROBILINOGEN 0.2 E.U./dl (0.2-1.0)
[2019-12-26 15:43] LABS: CASTS None Seen /LPF (None Seen); SQUAMOUS 0-3 Few /LPF (0-3)
[2019-12-26 15:44] LABS: BACTERIA-REFLEX None Seen /HPF (None Seen); CRYSTALS None Seen /LPF (None Seen); URINE RBC 0-2 Rare /HPF (0-2); URINE WBC-REFLEX None Seen /HPF (0-5)
[2019-12-26 16:07] LABS: EOSINOPHILS 1.9 % (0.0-3.0); HEMATOCRIT 40.4 % (37.0-47.0); HEMOGLOBIN 13.7 gm/dL (12.0-15.0); LYMPHOCYTES 29.9 % (24.0-44.0); MCH 31.5 pg (26.0-34.0); MCHC 33.8 g/dL (28.0-37.0); MONOCYTES 8.6 % (1.0-8.0); POLYS 58.6 % (36.0-66.0); RBC 4.34 mil/uL (4.20-5.00); RDW 14.2 % (10.5-14.5); WBC 6.8 thou/uL (4.0-11.0)
[2019-12-26 16:17] LABS: CALCIUM 8.8 mg/dL (8.5-10.1); CREATININE 0.7 mg/dL (0.6-1.0); POTASSIUM 3.8 mmol/L (3.5-5.1)
[2019-12-26 16:22] LABS: TOTAL BILIRUBIN 0.2 mg/dL (0.2-1.0); TOTAL PROTEIN 7.6 g/dL (6.4-8.2)
[2019-12-26 16:35] LABS: PLATELET COUNT 170 thou/uL (150-400)
[2019-12-26] MEDS ORDERED: KEFLEX500 M1 PO (17:33)
[2019-12-26] MEDS ORDERED: PYRIDIUM200 MG PO (17:33)
[2019-12-26 18:07] VITALS: BP 121/66
== END 2019-12-26 18:07 | disposition home or self-care (01) ==
LOC: ER 15:12
PROVIDERS: Emergency Medicine; Nurse Practitioner Family
DX: N39.0 Urinary tract infection, site not specified (principal); R31.9 Hematuria, unspecified; M79.7 Fibromyalgia; F17.210 Nicotine dependence, cigarettes, uncomplicated; Z90.89 Acquired absence of other organs; Z98.51 Tubal ligation status; Z79.899 Other long term (current) drug therapy; Z79.2 Long term (current) use of antibiotics; Z88.8 Allergy status to other drugs, medicaments and biological substances

== ENCOUNTER 2020-08-20 17:39 | Emergency (ER) | payer OTHER ==
[~2020-08-20] VITALS: Ht 162.6 cm; Wt 57.1 kg
[~2020-08-20 17:39] MED LIST changes: +KEFLEX500 M1 PO; +PYRIDIUM200 MG PO
[2020-08-20 17:48] VITALS: BP 121/76
[2020-08-20] MEDS ORDERED: CYCLOBENZAPRINE5 MG PO (18:58)
[2020-08-20] MEDS ORDERED: NORCO5 PO (18:58)
[2020-08-20] MEDS ORDERED: PREDNISONE 20 M20 MG PO (18:59)
== END 2020-08-20 19:21 | disposition home or self-care (01) ==
LOC: ER 17:39
DX: K08.89 Other specified disorders of teeth and supporting structures (principal); R51.9 Headache, unspecified; M54.31 Sciatica, right side; F17.210 Nicotine dependence, cigarettes, uncomplicated; Z90.89 Acquired absence of other organs; Z79.899 Other long term (current) drug therapy; Z88.8 Allergy status to other drugs, medicaments and biological substances

== ENCOUNTER 2021-05-31 16:25 | Emergency (ER) | payer OTHER ==
[~2021-05-31] VITALS: Ht 157.5 cm; Wt 59.0 kg
[~2021-05-31 16:25] MED LIST changes: +NORCO5 PO; +PREDNISONE 20 M20 MG PO
[2021-05-31 16:31] VITALS: BP 120/63
== END 2021-05-31 17:37 | disposition home or self-care (01) ==
LOC: ER 16:25
DX: M79.642 Pain in left hand (principal); F17.210 Nicotine dependence, cigarettes, uncomplicated; M79.7 Fibromyalgia; Z98.51 Tubal ligation status; Z88.6 Allergy status to analgesic agent; Z88.8 Allergy status to other drugs, medicaments and biological substances; Z79.2 Long term (current) use of antibiotics